=== PATIENT | male | born 1960 | race Hispanic/Latino ===

== ENCOUNTER 2017-10-22 06:01 | Day surgery (SDC) | payer BC ==
[2017-10-22] MEDS ORDERED: ECOTRIN PO ONE ×2 (06:18→06:21)
[2017-10-22] MEDS ORDERED: NACL 0.9% 500 ML 500 ML ONE (06:20)
[2017-10-22] MEDS ORDERED: NACL 0.9% 500 ML 500 ML IV SCH (07:00)
[2017-10-22 07:13] LABS: Basophils # (Auto) 0.1 K/mm3 (0.0-0.1); Eosinophils # (Auto) 0.6 K/mm3 (0.0-0.4); Eosinophils % (Auto) 6.1 % (0.0-4.3); Hematocrit 43.6 % (35.5-45.6); Hemoglobin 15.1 gm/dl (11.8-15.2); Lymphocytes # (Auto) 3.7 K/mm3 (1.2-5.4); Lymphocytes % (Auto) 35.7 % (13.4-35.0); Mean Corpuscular HGB Conc 35 % (32-34); Mean Corpuscular Hemoglobin 31 pg (28-32); Mean Corpuscular Volume 91 fl (84-94); Monocytes # (Auto) 0.7 K/mm3 (0.0-0.8); Monocytes % (Auto) 7.2 % (0.0-7.3); Platelet Count 301 K/mm3 (140-440); Red Cell Distribution Width 12.6 % (13.2-15.2)
[2017-10-22 07:19] LABS: BUN/Creatinine Ratio 23; Blood Urea Nitrogen 14 mg/dL (9-20); Calcium 8.9 mg/dL (8.4-10.2); Hemolysis Index 25
[2017-10-22 07:20] LABS: INR 0.91 (0.87-1.13)
[2017-10-22] MEDS ORDERED: HEPARIN 10,000 UNITS/10 ML ONE (08:17)
[2017-10-22] MEDS ORDERED: NITROGLYCERIN SYRINGE 3 ML ONE (08:17)
[2017-10-22] MEDS ORDERED: XYLOCAINE 2% INFILTRATI ONE (08:17)
[2017-10-22] MEDS ORDERED: HEPARIN/NS 5000 UNIT/500ML(CATH LAB) 1,000 ML IR ONE (08:17)
[2017-10-22] MEDS ORDERED: CALAN ONE (08:17)
[2017-10-22] MEDS ORDERED: SUBLIMAZE ONE (08:18)
[2017-10-22] MEDS ORDERED: VERSED ONE (08:18)
--- NOTE | 2017-10-22 10:01 | Cardiac Catherization Report ---
CARDIAC CATHETERIZATION REFERRING PHYSICIAN: Dr. Luisa Porter. INDICATION FOR PROCEDURE: The patient is a very pleasant 57-year-old gentleman with a history of hypertension, went to the Emergency Room with chest pain, diagnosed with a non-STEMI. He left against medical advice. Currently, he had further chest pain, seen in the office, set up for left heart catheterization. Risks, benefits, alternatives discussed at length prior to obtaining informed consent. PROCEDURE IN DETAIL: The patient was brought to the livestock laborer in a postabsorptive state, prepped and draped in sterile fashion. Vinicius's test in right hand is normal. A 2 mL of 2% lidocaine used to anesthetize the right wrist. A standard 6-Chilean hydrophilic sheath used to cannulate the right radial artery via modified surgery Seldinger technique. All exchanges performed to exchange a J-tipped guidewire. JL3.5 catheter used to engage left main. No dampening or ventricularization. Cineangiography performed in all projections. JR4 catheter was used to cross the aortic valve under fluoroscopic guidance. Left ventriculography performed in 30 PAUL and 30 ENGLISH projections via hand injections, catheter flushed. Manual pullback performed with continuous pressure monitoring. Catheter used to engage the right coronary. No dampening or ventricularization. Cineangiography performed in all projections. Next, catheter removed from the body of wire, sheath removed. Manual pressure used to achieve hemostasis. I directly supervised the administration of moderate sedation with fentanyl and Versed from 8:58-9:15 a.m. DATA: Aortic pressure is 110/60, LV pressure is 110, LVEDP of 20 mmHg. The patient remained in normal sinus rhythm throughout the procedure. Left ventriculography reveals mild global left ventricular hypokinesis, estimated ejection fraction of 40-45%. No evidence of aortic stenosis. CORONARY ANATOMY: This is a right dominant system. Right coronary is occluded proximally extensive left to right and right to right collaterals identified. Left main is ectatic. There is extensive calcific disease in the LAD and left circumflex. Left circumflex with a 99% ostial stenosis, 80% mid left circumflex stenosis. LAD has a 99% calcific complex stenosis in the mid segment. CONCLUSIONS: 1. Severe and diffuse calcific multivessel coronary disease as aforementioned. 2. Mild global left ventricular hypokinesis, estimated ejection fraction of 40-45%. 3. No evidence of aortic stenosis. At this point, given the diffuse and complex nature of disease, recommend he undergo coronary bypass surgery for complete revascularization. He is clinically stable, chest pain free. At this point, he will be transferred to [facility] in stable condition for consideration of coronary bypass surgery. Discussed with Dr. Morales. Results of procedure explained to the patient and family. All questions and concerns were addressed. JOB# [id number] DEWEY/ANTONIO
[2017-10-22 12:37] VITALS: BP 119/78
--- NOTE | 2017-10-22 13:04 | Cardiac Catherization Report ---
ADDENDUM CARDIAC CATHETERIZATION I just had a long discussion with the patient. I spent additional 45 minutes with him. He has severe diffuse calcific 3-vessel disease. He needs coronary artery bypass surgery. He is asymptomatic at this point. He does have a mild cardiomyopathy as well. He left [facility] with a non-STEMI 10 days ago against medical advice. I had a transfer to [facility] setup for coronary bypass surgery. Discussed with Dr. Morales. However, at this point, the patient wants to leave against medical advice. I believe his anatomy is very high risk and he is a high risk of sudden cardiac . He is entirely lucid and comprehends this decision. I had several nurses at bedside as witnesses to confirm this. He asks specifically than I had to speak with his sister. We will reapproach him in 2 hours and discuss again. At this point, the patient leaving against medical advice. I have advised him not to drive any heavy machinery or even an automobile until his procedure is complete. He states that he has " He is currently chest pain free, hemodynamically and electrically stable. Again, he is leaving against medical advice and understands the consequences of this decision. JOB# [id number] DEWEY/ANTONIO
--- NOTE | 2017-10-23 14:09 | Short Stay Summary ---
Short Stay Documentation Date of service: 10/22/17 - History H&P: obtained from office - Allergies and Medications Current Medications: Allergies No Known Allergies Allergy (Unverified 10/22/17 06:01) Home Medications Medication Instructions Recorded Confirmed Last Taken Type Aspirin [Lo-Dose Aspirin EC] 81 mg PO DAILY 10/22/17 10/22/17 10/21/17 History Atenolol [Tenormin] 25 mg PO BID 10/22/17 10/22/17 10/21/17 18:00 History Nitroglycerin [Nitrostat] 0.4 mg SL Q5M PRN 10/22/17 10/22/17 2 Weeks Ago History ~10/08/17 - Brief post op/procedure progress note Date of procedure: 10/22/17 Pre-op diagnosis: chest pain Post-op diagnosis: other (CAD) Procedure: LHC - see cath report Anesthesia: local Estimated blood loss: none Condition: stable - Hospital course Hospital course: Pt presented for scheduled elective C which revealed severe and diffuse calcific multivessel CAD with EF 40-45%. Transfer to [place] for CABG was recommended and initiated. However, pt decided to leave AGAINST MEDICAL ADVICE. - Disposition Condition at discharge: Stable Disposition: [id number] LEFT AGAINST MED ADVICE - Discharge Diagnoses (1) CAD (coronary artery disease) Status: Chronic Short Stay Discharge Plan Follow up with: FARHAT SAHU MD [Staff Physician] - 7 Days BK CHONG [Primary Care Provider] - 7 Days Forms: CardCath PCI D/C Instructions
== END 2017-10-22 12:08 | disposition left against medical advice (07) ==
LOC: CATHLABREC 06:01
PROVIDERS: ATTEND Internal Medicine
DX: I25.10 Atherosclerotic heart disease of native coronary artery without angina pectoris (principal); I10 Essential (primary) hypertension; E78.5 Hyperlipidemia, unspecified; I25.2 Old myocardial infarction; F17.210 Nicotine dependence, cigarettes, uncomplicated; Z79.82 Long term (current) use of aspirin; Z79.899 Other long term (current) drug therapy
CPT/HCPCS: 36415; 80048; 85025; 85610; 85730; 93005; 93010; 93458; 99152; C1769; C1894; J1644; J2250; J3010; J7040; Q9967